=== PATIENT | female | born 1985 | race Caucasian/White ===

== ENCOUNTER 2017-07-27 19:36 | Emergency (ER) | payer BC ==
[2017-07-27] MEDS ORDERED: Ibuprofen TAB* 600 MG PO ONE (20:33)
[2017-07-27] MEDS ORDERED: Ondansetron ODT TAB* 4 MG PO ONE (20:33)
[2017-07-27] MEDS ORDERED: NS 0.9% 1000 ML* 1,000 ML IV ONE ×2 (21:03→21:04)
[2017-07-27] MEDS ORDERED: Ondansetron INJ* 2 MG/ML VIAL IV ONE (21:03)
[2017-07-27] MEDS ORDERED: O ndansetron ODT 4MG 2TAB PRPK 4 MG PAK PO ONE (22:08)
[2017-07-27 23:53] VITALS: BP 101/68
--- NOTE | 2017-07-31 13:45 | ED ---
Parmjit Chavira Gabriel, scribed for Ori Aguero MD on 07/27/17 at 2041 . GI/ HPI - HPI Summary HPI Summary: This patient is a 32 year old F presenting to [facility] accompanied by her mother with a chief complaint of vomiting since 0630 this morning. She has had multiple episodes of vomiting and is not vomiting bile, she is unable to keep food down. The patient rates the pain 2/10 in severity. Patient reports body aches, sore throat, diarrhea, nausea, cough, ABD pain, and fever. Patient denies KWAN, dysuria, and hematuria. Patient had positive exposure to sick persons. LNMP was a week ago. - History of Current Complaint Chief Complaint: EDNauseaVomitDiarrh Time Seen by Provider: 07/27/17 20:32 Stated Complaint: VOMIITING Hx Obtained From: Patient Onset/Duration: Started Hours Ago, Still Present Timing: Constant Severity: Moderate Current Severity: Moderate Pain Intensity: 2 Location of Pain: Diffuse Associated Signs and Symptoms: Positive: Negative - KWAN, Other: - body aches, sore throat, diarrhea, nausea, cough, ABD pain, fever, - Allergy/Home Medications Allergies/Adverse Reactions: Allergies Allergy/AdvReac Type Severity Reaction Status Date / Time lidocaine Allergy See Comment Verified 07/27/17 20:35 Blood oranges Allergy Severe Difficulty Uncoded 09/12/15 11:32 Breathing wheat gluten AdvReac Intermediate See Comment Uncoded 08/04/15 12:04 PMH/Surg Hx/FS Hx/Imm Hx Infectious Disease History: No Infectious Disease History: Denies: Traveled Outside the [place] in Last 30 Days - Social History Occupation: Employed Full-time Lives: With Family Alcohol Use: Rare Substance Use Type: Reports: None Smoking Status (MU): Never Smoked Tobacco Review of Systems Positive: Fever. Negative: Chills Negative: Erythema Positive: Sore Throat Negative: Chest Pain Positive: Cough. Negative: Shortness Of Breath Positive: Abdominal Pain, Vomiting, Diarrhea, Nausea Negative: dysuria, hematuria Positive: Myalgia. Negative: Edema Negative: Rash Neurological: Other - dizziness All Other Systems Reviewed And Are Negative: Yes Physical Exam - Summary Physical Exam Summary: Constitutional: Well-developed, Well-nourished, Alert. (-) Distressed. Temp of 100.9 in room Skin: Warm, Dry HENT: Normocephalic; Atraumatic Eyes: Conjunctiva normal Neck: Musculoskeletal ROM normal neck. (-) JVD, (-) Stridor, (-) Tracheal deviation Cardio: Rhythm regular, rate normal, Heart sounds normal; Intact distal pulses; The pedal pulses are 2+ and symmetric. Radial pulses are 2+ and symmetric. (-) Murmur Pulmonary/Chest wall: Effort normal. (-) Respiratory distress, (-) Wheezes, (-) Rales Abd: Soft, (-) Tenderness, (-) Distension, (-) Guarding, (-) Rebound Musculoskeletal: (-) Edema Lymph: (-) Cervical adenopathy Neuro: Alert, Oriented x3 Psych: Mood and affect Normal Triage Information Reviewed: Yes Vital Signs On Initial Exam: Initial Vitals Temp Pulse Resp BP Pulse Ox 99.9 F 119 20 111/74 100 07/27/17 19:56 07/27/17 19:56 07/27/17 19:56 07/27/17 19:56 07/27/17 19:56 Vital Signs Reviewed: Yes Diagnostics - Vital Signs Vital Signs Temp Pulse Resp BP Pulse Ox 07/27/17 19:56 99.9 F 119 20 111/74 100 - Laboratory Lab Statement: Any lab studies that have been ordered have been reviewed, and results considered in the medical decision making process. GIGU Course/Dx - Course Assessment/Plan: This patient is a 32 year old F [facility] mother with a chief complaint of vomiting since 0630 this morning. She has had multiple episodes of vomiting and is not vomiting bile, she is unable to keep food down. The patient rates the pain 2/10 in severity. Patient reports body aches, sore throat, diarrhea, nausea, cough, ABD pain, and fever. Patient denies KWAN, dysuria, and hematuria. Patient had positive exposure to sick persons. LNMP was a week ago. . Pt was negative for influenza A and B. In the ED course the patient was given IV fluids, Zofran, and motrin. Patient will be discharged and follow up from PCP. The patient is agreeable with this plan. - Diagnoses Provider Diagnoses: Gastroenteritis Discharge - Sign-Out/Discharge Documenting (check all that apply): Discharge - Discharge Plan Condition: Stable Disposition: HOME Patient Education Materials: Gastroenteritis (DC) Referrals: Karyn Garcia [facility]UFTER [Primary Care Provider] - 3 Days Additional Instructions: RETURN TO THE EMERGENCY DEPARTMENT FOR CHANGING OR WORSENING SYMPTOMS. The documentation as recorded by the Parmjit esparza Gabriel accurately reflects the service I personally performed and the decisions made by , Ori Aguero MD.
== END 2017-07-27 23:53 | disposition home or self-care (01) ==
LOC: ED 19:36
DX: K52.9 Noninfective gastroenteritis and colitis, unspecified (principal); R50.9 Fever, unspecified; J02.9 Acute pharyngitis, unspecified; R05 Cough; M79.1 Myalgia
CPT/HCPCS: 87502; 96361; 96374; 99282; A9270-GY; J2405